=== PATIENT | male | born 1980 | race Caucasian/White ===

== ENCOUNTER 2021-08-16 11:20 | Inpatient (IN) | payer OTHER ==
[~2021-08-16] VITALS: Ht 162.6 cm; Wt 70.2 kg
[2021-08-16] MEDS ORDERED: MAG HYDROX/AL HYDROX/SIMETH 30 ML SUSP UDCUP PO ONE (12:00)
[2021-08-16] MEDS ORDERED: FAMOTIDINE 10 MG/ML 2 ML VIAL IVP ONE (12:00)
[2021-08-16] MEDS ORDERED: KETOROLAC TROMETHAMINE 30 MG/ML VIAL IVP ONE (12:00)
[2021-08-16 12:13] LABS: COVID AG,FIA SOURCE NASOPHARYNGEAL
[2021-08-16 12:17] LABS: BASOPHILS % (AUTO) 0.3 % (0.0-2.0); EOSINOPHILS % (AUTO) 0.3 % (1.0-6.0); HEMOGLOBIN 15.8 g/dL (13.5-17.5); LYMPHOCYTES # (AUTO) 1.3 K/uL (1.0-4.8); LYMPHOCYTES % (AUTO) 14.9 % (22.0-44.0); MEAN CORPUSCULAR HEMOGLOBIN 29.7 pg (26.0-34.0); MEAN CORPUSCULAR HGB CONC 33.6 G/dL (31.0-37.0); MEAN CORPUSCULAR VOLUME 89 fL (80-100); MONOCYTES # (AUTO) 0.4 K/uL (0.1-1.0); NEUTROPHILS # (AUTO) 6.7 K/uL (1.8-7.7); NEUTROPHILS % (AUTO) 79.5 % (40.0-70.0); PLATELET COUNT (AUTO) 243 K/uL (150-450); RED BLOOD CELL COUNT(AUTO) 5.32 MIL/uL (4.50-5.90); RED CELL DISTRIBUTION WIDTH 16.3 % (11.5-14.5)
[2021-08-16 12:25] LABS: ANION GAP 8 mmol/L (8-16); CALCIUM, TOTAL 9.2 mg/dL (8.8-10.5); CARBON DIOXIDE 29 mmol/L (22-29); CHLORIDE 103 mmol/L (98-107); CREATININE 0.87 mg/dL (0.60-1.30); GLOMERULAR FILTR. RATE CALC > 60 mL/min (>60); GLUCOSE,RANDOM 110 mg/dL (70-110); POTASSIUM 4.4 mmol/L (3.5-5.1); SODIUM SERUM 140 mmol/L (136-145); UREA NITROGEN, BLOOD 15 mg/dL (7-18)
[2021-08-16 12:41] LABS: B-TYPE NATRIURETIC PEPTIDE 7 pg/mL (0-100)
[2021-08-16 12:51] LABS: ALANINE AMINOTRANSFERASE 34 U/L (12-78); ALBUMIN 4.8 g/dL (3.4-5.0); ALKALINE PHOSPHATASE 63 U/L (46-116); ASPARTATE AMINOTRANSFERASE 17 U/L (15-37); BILIRUBIN,TOTAL 0.7 mg/dL (0.1-1.0); CREATINE KINASE, TOTAL ONLY 115 U/L (39-308); LIPASE 150 U/L (73-393); PHOSPHORUS 3.1 mg/dL (2.5-4.9)
[2021-08-16] MEDS ORDERED: MAGNESIUM HYDROXIDE SUSPENSION 30 ML UDCUP PO PRN (13:00)
[2021-08-16 18:52] VITALS: BP 130/73
[2021-08-16 19:54] VITALS: BP 126/80
[2021-08-16] MEDS: FAMOTIDINE 20 MG TABLET PO SCH (20:09)
[2021-08-16] MEDS: ACETAMINOPHEN 325 MG TABLET PO PRN (20:09)
[2021-08-16 23:47] VITALS: BP 145/80
[2021-08-17 05:15] VITALS: BP 126/70
[2021-08-17 08:20] VITALS: BP 148/81
[2021-08-17] MEDS: FAMOTIDINE 20 MG TABLET PO SCH (09:23)
[2021-08-17] MEDS: ACETAMINOPHEN 325 MG TABLET PO PRN (09:23)
[2021-08-17] MEDS ORDERED: FAMO20 PO (10:25)
[2021-08-17 11:25] VITALS: BP 121/65
== END 2021-08-17 12:27 | DRG 313 ==
LOC: EMS 11:20 → 5S 18:02
PROVIDERS: ADMIT Internal Medicine; ATTEND Internal Medicine
DX: R07.89 Other chest pain (principal); Z20.822 Contact with and (suspected) exposure to COVID-19
CPT/HCPCS: 71045; 80053; 82550; 83690; 83735; 83880; 84100; 84484; 85025; 93005; 93306; 99285; J1885; J3490; 36415-L1; 36415-TC